=== PATIENT | female | born 1975 | race Caucasian/White ===

== ENCOUNTER 2016-10-20 09:17 | Inpatient (IN) | payer SELFPAY ==
[~2016-10-20] VITALS: Ht 167.6 cm; Wt 78.0 kg
[2016-10-20] MEDS ORDERED: ONDANSETRON HCL 4MG/2ML VIAL IV STA (09:46)
[2016-10-20] MEDS ORDERED: KETOROLAC 30MG/ML VIAL IV STA (09:46)
[2016-10-20] MEDS ORDERED: MORPHINE SULFATE 4 MG/ML CPJ (NOT FOR IM USE) IV STA (09:46)
[2016-10-20] MEDS ORDERED: SODIUM CHLORIDE 0.9% 1,000 ML IV ONE ×2 (09:46→18:00)
[2016-10-20 10:37] LABS: HEMATOCRIT. 34.8 % (36.0-48.0); HEMOGLOBIN. 11.3 g/dL (12.0-16.0); MEAN CORPUSCULAR HEMOGLOBIN 24.6 pg (28.0-32.0); MEAN CORPUSCULAR VOLUME 75.6 fL (81.0-99.0); MEAN PLATELET VOLUME 9.1 fl (7.4-10.4); PLATELET 195 x1000/uL (130-400); RED CELL DISTRIBUTION WIDTH 18.6 % (11.6-14.6)
[2016-10-20 10:40] LABS: CLARITY URINE CLOUDY (CLEAR); COLOR URINE DARK YELLOW (YELLOW); GLUCOSE URINE NEGATIVE (NEGATIVE); KETONES URINE NEGATIVE (NEGATIVE); LEUKOCYTE ESTERASE URINE 1+ (NEGATIVE); NITRITE URINE NEGATIVE (NEGATIVE); OCCULT BLOOD URINE 2+ (NEGATIVE); PH URINE 5.5 (4.5-8.0); PROTEIN URINE 3+ (NEGATIVE); SPECIFIC GRAVITY URINE 1.022 (1.005-1.030)
[2016-10-20 10:44] LABS: INR 1.1
[2016-10-20 10:46] LABS: CARBON DIOXIDE 20 mEq/L (21-32); CHLORIDE 103 mEq/L (98-107)
[2016-10-20 10:54] LABS: TROPONIN I < 0.02 ng/mL (0.00-0.04)
[2016-10-20 11:00] LABS: PLATELET ESTIMATE NORMAL
[2016-10-20] MEDS ORDERED: IOHEXOL-350 100 ML BOTTLE ONE (11:03)
[2016-10-20] MEDS ORDERED: SODIUM CHLORIDE 0.9% 10ML VIAL ONE (11:03)
[2016-10-20 11:27] LABS: *BARBITURATES SCREEN URINE NEGATIVE (NEGATIVE); *BENZODIAZEPINES SCREEN URINE NEGATIVE (NEGATIVE); *COCAINE SCREEN URINE NEGATIVE (NEGATIVE); CANNABINOID URINE SCREEN NEGATIVE (NEGATIVE); METHADONE URINE SCREEN NEGATIVE (NEGATIVE); OPIATES URINE SCREEN NEGATIVE (NEGATIVE); PHENCYCLIDINE URINE SCREEN NEGATIVE (NEGATIVE)
[2016-10-20] MEDS ORDERED: GUAIFENESIN 200MG/10ML SUGAR FREE UDC PO PRN (12:00)
[2016-10-20] MEDS ORDERED: ONDANSETRON HCL 4MG/2ML VIAL IV PRN (12:00)
[2016-10-20] MEDS ORDERED: NA PHOS,M-B/NA PHOS,DI-BA ENEMA 118ML PR PRN (12:00)
[2016-10-20] MEDS ORDERED: HYDROMORPHONE HCL/PF 2MG/ML CPJ IV PRN (12:00)
[2016-10-20] MEDS ORDERED: IPRATROPIUM/ALBUTEROL 0.5-3(2.5)MG/3ML NEB INH PRN (12:00)
[2016-10-20] MEDS ORDERED: DOCUSATE SODIUM 100MG CAPSULE PO PRN (12:00)
[2016-10-20] MEDS ORDERED: CLONIDINE 0.1MG TABLET PO PRN (12:00)
[2016-10-20] MEDS ORDERED: HYDROCODONE/ACETAMINOPHEN 5/325MG TABLET PO PRN (12:00)
[2016-10-20] MEDS ORDERED: DIPHENHYDRAMINE 50MG/ML VIAL IV PRN (12:00)
[2016-10-20] MEDS ORDERED: MAGNESIUM/ALUMINUM HYDROXIDE/SIMETHICONE 30ML UDC PO PRN (12:00)
[2016-10-20] MEDS ORDERED: ACETAMINOPHEN 325MG TABLET PO PRN (12:00)
[2016-10-20] MEDS ORDERED: LORAZEPAM 2MG/ML CPJ IV PRN (12:00)
[2016-10-20] MEDS ORDERED: ENOXAPARIN 40MG/0.4ML SYR SUBCUT SCH (12:00)
[2016-10-20 12:18] LABS: *AMPHETAMINES SCREEN URINE PRESUMTIVE POSITIVE (NEGATIVE)
[2016-10-20] MEDS ORDERED: LEVOFLOXACIN 500MG PREMIX 100 ML IV NR (12:30)
[2016-10-20] MEDS: SODIUM CHLORIDE 0.45% 1,000 ML IV SCH (13:42)
[2016-10-20 20:00] VITALS: BP 76/44
[2016-10-20 22:46] VITALS: BP 76/44
[2016-10-20] MEDS: HYDROCODONE/ACETAMINOPHEN 5/325MG TABLET PO PRN (23:31)
[2016-10-21] VITALS: BP 101/61
[2016-10-21] MEDS: SODIUM CHLORIDE 0.45% 1,000 ML IV SCH ×3 (03:45→14:00)
[2016-10-21] MEDS ORDERED: DIPHENHYDRAMINE 50MG/ML VIAL IV PRN (03:45)
[2016-10-21] MEDS ORDERED: GUAIFENESIN 200MG/10ML SUGAR FREE UDC PO PRN (03:45)
[2016-10-21] MEDS ORDERED: ONDANSETRON HCL 4MG/2ML VIAL IV PRN (03:45)
[2016-10-21] MEDS ORDERED: HYDROMORPHONE HCL/PF 2MG/ML CPJ IV PRN (03:45)
[2016-10-21] MEDS ORDERED: LORAZEPAM 2MG/ML CPJ IV PRN (03:45)
[2016-10-21] MEDS: ACETAMINOPHEN 325MG TABLET PO PRN ×3 (03:45→16:07)
[2016-10-21] MEDS ORDERED: DOCUSATE SODIUM 100MG CAPSULE PO PRN (03:45)
[2016-10-21] MEDS ORDERED: IPRATROPIUM/ALBUTEROL 0.5-3(2.5)MG/3ML NEB INH PRN (03:45)
[2016-10-21] MEDS ORDERED: CLONIDINE 0.1MG TABLET PO PRN (03:45)
[2016-10-21 04:00] VITALS: BP 99/60
[2016-10-21 08:00] VITALS: BP 94/58
[2016-10-21 08:05] LABS: HEMATOCRIT. 29.3 % (36.0-48.0); HEMOGLOBIN. 9.5 g/dL (12.0-16.0); MEAN CORPUSCULAR HEMOGLOBIN 24.4 pg (28.0-32.0); MEAN CORPUSCULAR VOLUME 75.5 fL (81.0-99.0); MEAN PLATELET VOLUME 9.5 fl (7.4-10.4); PLATELET 152 x1000/uL (130-400); RED BLOOD CELL COUNT 3.88 mill/uL (4.2-5.4); RED CELL DISTRIBUTION WIDTH 18.6 % (11.6-14.6)
[2016-10-21] MEDS ORDERED: POTASSIUM CHLORIDE 20MEQ TABLET SR PO NR (08:15)
[2016-10-21 08:22] LABS: CARBON DIOXIDE 18 mEq/L (21-32); CHLORIDE 104 mEq/L (98-107); HDL CHOLESTEROL 10 mg/dL (40-59); LDL CHOLESTEROL 58 mg/dL (5-100)
[2016-10-21] MEDS ORDERED: LEVOFLOXACIN 500MG PREMIX 100 ML IV SCH ×2 (09:00→12:00)
[2016-10-21 12:00] VITALS: BP 94/56
[2016-10-21] MEDS ORDERED: ENOXAPARIN 40MG/0.4ML SYR SUBCUT SCH (15:00)
[2016-10-21 16:00] VITALS: BP 101/74
[2016-10-21 17:51] LABS: PLATELET ESTIMATE NORMAL
[2016-10-21] MEDS: HYDROCODONE/ACETAMINOPHEN 5/325MG TABLET PO PRN (18:13)
[2016-10-21 20:00] VITALS: BP 120/55
[2016-10-22] VITALS: BP 93/59
[2016-10-22] MEDS: SODIUM CHLORIDE 0.45% 1,000 ML IV SCH ×2 (00:20→11:34)
[2016-10-22] MEDS: HYDROCODONE/ACETAMINOPHEN 5/325MG TABLET PO PRN ×3 (00:27→12:43)
[2016-10-22 04:00] VITALS: BP 107/60
[2016-10-22] MEDS: ACETAMINOPHEN 325MG TABLET PO PRN (04:15)
[2016-10-22 07:08] LABS: HEMOGLOBIN. 9.5 g/dL (12.0-16.0); MEAN CORPUSCULAR HEMOGLOBIN 24.5 pg (28.0-32.0); MEAN PLATELET VOLUME 9.3 fl (7.4-10.4); PLATELET 166 x1000/uL (130-400); RED BLOOD CELL COUNT 3.87 mill/uL (4.2-5.4); RED CELL DISTRIBUTION WIDTH 18.6 % (11.6-14.6)
[2016-10-22 07:20] LABS: CARBON DIOXIDE 18 mEq/L (21-32); CHLORIDE 107 mEq/L (98-107)
[2016-10-22 08:00] VITALS: BP 97/52
[2016-10-22] MEDS ORDERED: POTASSIUM CHLORIDE 20MEQ TABLET SR PO NR (08:30)
[2016-10-22 11:24] VITALS: BP 97/52
[2016-10-22] MEDS ORDERED: LEVOFLOXACIN 500MG PREMIX 100 ML IV SCH (12:00)
[2016-10-22 12:05] VITALS: BP 115/68
[2016-10-22 12:43] VITALS: BP 115/68
[2016-10-22 13:23] LABS: PLATELET ESTIMATE NORMAL
== END 2016-10-22 12:00 | disposition home or self-care (01) | DRG 720 ==
LOC: ER 09:20 → 5WST 11:46 → EDBEDREQ 13:59 → EDBEDREQSVC 13:59 → CANRESERV 15:22 → ENRESERV 15:22 → EDBEDREQSVC 15:58 → CANRESERV 17:09 → ENRESERV 17:09 → EDBEDREQSVC 17:39 → CANRESERV 17:46 → ENRESERV 17:46 → EDBEDREQSVC 17:53 → ENRESERV 17:57 → ER 19:09 → 5WST 10-21 00:57
PROVIDERS: ADMIT Internal Medicine; ATTEND Internal Medicine
DX: A41.9 Sepsis, unspecified organism (principal); N17.9 Acute kidney failure, unspecified; N12 Tubulo-interstitial nephritis, not specified as acute or chronic; I10 Essential (primary) hypertension; E86.0 Dehydration; D64.9 Anemia, unspecified; E87.6 Hypokalemia; E86.9 Volume depletion, unspecified; F17.210 Nicotine dependence, cigarettes, uncomplicated; Z90.49 Acquired absence of other specified parts of digestive tract
CPT/HCPCS: 36415; 71010; 74177; 76770; 80048; 80053; 80061; 80305; 81001; 82570; 83690; 83880; 84156; 84484; 85025; 85610; 87040; 87077; 87086; 87186; 93005; 96374; 96375; 99285; A4216; J1650; J1885; J1956; J2270; J2405; J7030; Q9967

== ENCOUNTER 2017-03-30 08:07 | Emergency (ER) | payer SELFPAY ==
[~2017-03-30] VITALS: Ht 160 cm; Wt 50.0 kg
[2017-03-30 08:14] VITALS: BP 124/72
== END 2017-03-30 12:33 | disposition left against medical advice (07) ==
LOC: ER 08:17
DX: R51 Headache (principal); Z53.21 Procedure and treatment not carried out due to patient leaving prior to being seen by health care provider